=== PATIENT | female | born 1955 | race Caucasian/White ===

== ENCOUNTER → 2016-05-19 14:25 | Outpatient (CLI) | payer MEDICARE | END | disposition home or self-care (01) | LOC: D.RAD 14:25 | DX: J18.9 Pneumonia, unspecified organism (principal) ==

== ENCOUNTER 2018-03-22 10:04 | Inpatient (IN) | payer MEDICARE ==
[~2018-03-22] VITALS: Ht 165.1 cm; Wt 81.8 kg
--- NOTE | ~2018-03-22 | MORECARE ---
CASE MANAGEMENT DISCHARGE SUMMARY PATIENT: YARELI GRAHAM UNIT: [id number] ADM DATE: 03/22/18 AGE: 62 : 59 SEX: F ROOM/BED: D.3123 AUTHOR: CHULA,DOC PHYSICIAN: REFERRING PHYSICIAN: ROLY SEGUNDO MD DATE OF SERVICE: 03/24/18 Discharge Plan Patient Name: YARELI GRAHAM Facility: [facility]:[place] : 1955 Planned Disposition: Home Anticipated Discharge Date: 03/24/18 Discharge Date: Expected LOS: 2 Initial Reviewer: [email or web address] Initial Review Date: 03/24/2018 Generated: 03/24/18 2:58 pm Comments DCP- Discharge Planning Updated by [email or web address]: Chriss Mcleod on 03/24/18 12:[address] Patient Name: YARELI GRAHAM Admission Status: ER Accout number: [id number] Admission Date: 03-22-2018 : 1955 Admission Diagnosis: Attending: ROLY SEGUNDO Current LOS: 2 Anticipated DC Date: 03-24-2018 Planned Disposition: Home Primary Insurance: [employer] Discharge Planning Comments: CM MET WITH PT IN ROOM TO DISCUSS DISCHARGE PLANNING AND NEEDS. PT REPORTS LIVING AT HOME INDEPENDENTLY WITH HER SPOUSE. PT HAS NO MEDICAL EQUIPMENT AND NO OUTSIDE SERVICES ASSISTING IN THE HOME. CM DISCUSSED AVAILABILITY OF HOME HEALTH, REHAB SERVICES AND MEDICAL EQUIPMENT. PT DENIES DISCHARGE NEEDS, REPORTS HER SPOUSE WILL PICK HER UP FOR DISCHARGE HOME. IMPORTANT MESSAGE FROM MEDICARE PROVIDED AND EXPLAINED. PIPE BENDER NURSE NOTIFIED. Vacuum Worker: Chriss Mcleod DCPIA - Discharge Planning Initial Assessment Updated by [email or web address]: Chriss Mcleod on 03/24/18 1:54 pm * Is the patient Alert and Oriented? Yes * How many steps to enter\exit or inside your home? 1--I * PCP DR. FISHMAN * [facility] * Preadmission Environment Home with Family * ADLs Independent * Equipment None * Other Equipment NO MEDICAL EQUIPMENT PROVIDER PREFERENCE * List name and contact numbers for known caregivers / representatives who currently or will assist patient after discharge: DENVER GARHAM, SPOUSE, * Verbal permission to speak to the caregivers and representatives has been obtained from the patient. N/A * Community resources currently utilized None * Please name any agencies selected above. NONE * Additional services required to return to the preadmission environment? No * Can the patient safely return to the preadmission environment? Yes * Has this patient been hospitalized within the prior 30 days at any hospital? No Patient Name: YARELI GRAHAM Page [id number] at 1358 All edits/amendments must be made on the electronic document DICTATION DATE: 03/24/18 1359 PAVING INSPECTOR: GREGORY 03/24/18 1358 RPT#: [id number] DC DATE: STATUS: ADM IN [facility] [address] [place] [address] END OF REPORT
[2018-03-22 11:00] VITALS: BP 111/78
[2018-03-22 11:00] LABS: BASOPHILS 0.2 % (0-2); EOSINOPHILS 0.8 % (0-7); HEMOGLOBIN 12.8 g/dL (12-16); IMMATURE GRANULOCYTES 0.1 % (0-5); LYMPHOCYTES 22.8 % (15-50); MCH 30.5 pg (26.0-34.0); MCHC 32.8 g/dL (31.0-37.0); MCV 93.1 fL (80.0-100.0); MEAN PLATELET VOLUME 9.7 fL (7.4-10.4); MONOCYTES 4.3 % (2-11); NEUTROPHILS 71.8 % (40-80); RBC 4.19 10x6/uL (4.00-5.40); WBC 8.7 10x3/uL (4.8-10.8)
[2018-03-22 11:04] LABS: ALBUMIN 2.9 g/dL (3.4-5.0); ALKALINE PHOSPHATASE 107 U/L (46-116); ALT (SGPT) 27 U/L (10-68); BILIRUBIN - TOTAL 0.13 mg/dL (0.2-1.3); CALC OSMOLALITY 283 mosm/kg (275-300); CALCIUM 9.1 mg/dL (8.5-10.1); CARBON DIOXIDE 30.6 mmol/L (21.0-32.0); CHLORIDE - SERUM 103 mmol/L (98-107); CREATININE - SERUM 0.8 mg/dL (0.6-1.3); GLUCOSE 115 mg/dL (74-106); POTASSIUM - SERUM 4.3 mmol/L (3.5-5.1); PROTEIN - SERUM 7.5 g/dL (6.4-8.2); SODIUM 141 mmol/L (136-145); UREA NITROGEN 17 mg/dL (7-18); eGFR NON AFRICAN AMERICAN 77 mL/min (90-120)
[2018-03-22 11:08] LABS: PLATELET COUNT 373 10x3/uL (130-400)
[2018-03-22 11:16] LABS: CKMB 1.8 U/L (0.0-3.6); CREATINE KINASE 65 UL (21-215); PRO BNP 48 pg/mL (0-125); TROPONIN-I < 0.017 ng/mL (0.000-0.060)
[2018-03-22 12:00] VITALS: BP 126/75
[2018-03-22 12:57] LABS: APPEARANCE CLEAR (CLEAR); BILIRUBIN NEGATIVE (NEGATIVE); COLOR YELLOW (YELLOW); GLUCOSE NEGATIVE (NEGATIVE); KETONE NEGATIVE (NEGATIVE); NITRITE NEGATIVE (NEGATIVE); PROTEIN NEGATIVE (NEGATIVE); UROBILINOGEN NORMAL (NORMAL)
[2018-03-22 12:58] LABS: BACTERIA FEW /hpf (NONE SEEN); EPITHELIAL CELLS OCC /hpf (0-5); MUCUS <1+ /lpf (NONE SEEN); RED CELLS - URINE 0-5 /hpf (0-5); WHITE CELLS - URINE OCC /hpf (0-5)
[2018-03-22 14:02] VITALS: BP 111/83
[2018-03-22] MEDS ORDERED: SINGULAIR10 MG PO ×2 (14:06→14:12)
[2018-03-22] MEDS ORDERED: SYMBICORT 16010.2 GM INH (14:07)
[2018-03-22] MEDS ORDERED: CYMBALTA30 MG PO (14:08)
[2018-03-22] MEDS ORDERED: VENTOLIN HFA18 GM INH (14:09)
[2018-03-22] MEDS ORDERED: IPRAT-ALBUT 0.5-3 ML UPD (14:09)
[2018-03-22] MEDS ORDERED: PAIN PUMP MORPHINE IMP (14:11)
[2018-03-22 14:41] VITALS: BP 111/83; Ht 165.1 cm; Wt 81.8 kg
[2018-03-22 16:10] VITALS: BP 146/75
[2018-03-22 20:00] VITALS: BP 127/73
[2018-03-23] VITALS: BP 109/69
[2018-03-23 04:00] VITALS: BP 114/70
[2018-03-23 08:12] VITALS: BP 131/68
[2018-03-23 12:00] VITALS: BP 109/64
[2018-03-23 18:33] VITALS: BP 125/69
[2018-03-23 20:00] VITALS: BP 122/77
[2018-03-24 00:10] VITALS: BP 108/66
[2018-03-24 04:00] VITALS: BP 115/72
[2018-03-24 05:55] LABS: BASOPHILS 0.3 % (0-2); EOSINOPHILS 0.4 % (0-7); HEMATOCRIT 38.5 % (36.0-48.0); HEMOGLOBIN 12.7 g/dL (12-16); IMMATURE GRANULOCYTES 0.3 % (0-5); LYMPHOCYTES 25.2 % (15-50); MCH 30.1 pg (26.0-34.0); MCV 91.2 fL (80.0-100.0); MEAN PLATELET VOLUME 9.9 fL (7.4-10.4); MONOCYTES 5.2 % (2-11); NEUTROPHILS 68.6 % (40-80); PLATELET COUNT 336 10x3/uL (130-400); RBC 4.22 10x6/uL (4.00-5.40); RDW 12.8 % (11.5-14.5); WBC 7.7 10x3/uL (4.8-10.8)
[2018-03-24 06:25] LABS: ANION GAP 13.2 mmol/L (8-16); CALCIUM 8.8 mg/dL (8.5-10.1); CARBON DIOXIDE 31.3 mmol/L (21.0-32.0); CREATININE - SERUM 0.9 mg/dL (0.6-1.3); POTASSIUM - SERUM 4.5 mmol/L (3.5-5.1)
[2018-03-24 09:33] VITALS: BP 107/64
[2018-03-24] MEDS ORDERED: LEVAQUIN750 MG PO (12:04)
[2018-03-24] MEDS ORDERED: PROTONIX40 MG PO (12:05)
[2018-03-24 12:19] VITALS: BP 111/60
== END 2018-03-24 14:32 | disposition home or self-care (01) | DRG 190 ==
LOC: D.ER 10:04 → D.M2 12:18 → D.EDHOLD 12:18 → D.M2 12:43
PROVIDERS: Emergency Medicine; Internal Medicine Nephrology
DX: J44.0 Chronic obstructive pulmonary disease with (acute) lower respiratory infection (principal); J18.9 Pneumonia, unspecified organism; M81.0 Age-related osteoporosis without current pathological fracture; F32.9 Major depressive disorder, single episode, unspecified

== ENCOUNTER → 2019-03-05 12:19 | Outpatient (CLI) | payer MEDICARE ==
[~2019-03-05 12:19] MED LIST: CYMBALTA30 MG PO; IPRAT-ALBUT 0.5-3 ML UPD; LEVAQUIN750 MG PO; PAIN PUMP MORPHINE IMP; PROTONIX40 MG PO; SINGULAIR10 MG PO; SYMBICORT 16010.2 GM INH; VENTOLIN HFA18 GM INH
== END | disposition home or self-care (01) ==
LOC: D.RT 02-14 11:00
PROVIDERS: ATTEND Internal Medicine Pulmonary Disease
DX: J44.9 Chronic obstructive pulmonary disease, unspecified (principal)

== ENCOUNTER → 2019-03-19 14:20 | Outpatient (CLI) | payer MEDICARE | END | disposition home or self-care (01) | LOC: D.LAB 14:20 | PROVIDERS: ATTEND Internal Medicine Pulmonary Disease | DX: E88.01 Alpha-1-antitrypsin deficiency (principal) ==

== ENCOUNTER → 2019-07-04 09:31 | Outpatient (CLI) | payer MEDICARE ==
[2019-07-04 10:30] LABS: ALBUMIN 3.8 g/dL (3.4-5.0); BILIRUBIN - DIRECT 0.08 mg/dL (0.00-0.30); BILIRUBIN - INDIRECT 0.36 mg/dL (0.00-1.00); BILIRUBIN - TOTAL 0.44 mg/dL (0.2-1.3); PROTEIN - SERUM 7.3 g/dL (6.4-8.2)
[2019-07-05 07:11] LABS: HEPATITIS C ANTIBODY 0.2 S/CO RAT (0.0-0.9)
== END | disposition home or self-care (01) ==
LOC: D.LABREF 09:31
PROVIDERS: ATTEND Internal Medicine Pulmonary Disease
DX: E88.01 Alpha-1-antitrypsin deficiency (principal)

== ENCOUNTER → 2019-10-19 09:13 | Outpatient (CLI) | payer MEDICARE | END | disposition home or self-care (01) | LOC: D.US 09:13 | PROVIDERS: ATTEND Family Medicine | DX: R11.0 Nausea (principal); R10.9 Unspecified abdominal pain ==

== ENCOUNTER 2019-10-25 05:41 | Day surgery (SDC) | payer MEDICARE ==
--- NOTE | 2019-10-23 15:17 | NUR ---
T- 98.9T POX- 98% HR- 81 RR- 16 BP LA- 145/86 NOTIFED ANETHESIA ABOUT FAMILY HX OF MH. DR SUBRAMANIAN CAME TO EVAL PT ORDERS GIVEN FOR DOS.
[2019-10-23 15:53] LABS: HEMATOCRIT 43.7 % (36.0-48.0); HEMOGLOBIN 14.7 g/dL (12-16); MCH 30.9 pg (26.0-34.0); MCHC 33.6 g/dL (31.0-37.0); MEAN PLATELET VOLUME 10.4 fL (7.4-10.4); RBC 4.75 10x6/uL (4.00-5.40); RDW 13.3 % (11.5-14.5); WBC 7.3 10x3/uL (4.8-10.8)
[2019-10-23 16:10] LABS: CALCIUM 9.2 mg/dL (8.5-10.1); CARBON DIOXIDE 29.4 mmol/L (21.0-32.0)
[2019-10-23 16:15] LABS: ANION GAP 11.3 mmol/L (8-16); POTASSIUM - SERUM 3.7 mmol/L (3.5-5.1)
[2019-10-23 16:28] LABS: CREATININE - SERUM 0.9 mg/dL (0.6-1.3)
[~2019-10-25] VITALS: Ht 165.1 cm; Wt 84.4 kg
[2019-10-25] MEDS ORDERED: FISH OIL (06:09)
[2019-10-25] MEDS ORDERED: SUPER B COMPLEX (06:09)
[2019-10-25] MEDS ORDERED: MULTIVITAMIN (06:09)
[2019-10-25] MEDS ORDERED: CALCIUM/MAG/ZINC (06:10)
[2019-10-25 06:13] VITALS: BP 112/79; Ht 165.1 cm; Wt 84.4 kg
--- NOTE | 2019-10-25 06:42 | NUR ---
DR. OBRIEN NOTIFIED AND REVIEWED PT'S BEHAVIOR AND ASSESSMENT RESULTS. PT IS A LOW RISK PER DR. OBRIEN. DR. OBRIEN STATED TO GIVE RESOURECES TO PT AT TIME OF DISCHARGE. NO FURTHER ORDERST AT THIS TIME. RESOURCES REVIEWED WITH PT AND HE VERBALIZED UNDERSTANDING.
--- NOTE | 2019-10-25 10:34 | NUR ---
1001 IV DC'D. CATHETER TIP INTACT. PRESSURE HELD UNTIL BLEEDING CEASED. PT DOES NOT WANT BANDAID. SHE STATES THAT BANDAIDS BLISTERS HER ARM.
== END 2019-10-25 10:13 | disposition home or self-care (01) ==
LOC: D.OPS 05:41 → D.PAN 07:30 → D.OPS 10:13
PROVIDERS: Anesthesiology; ATTEND Surgery
DX: K80.20 Calculus of gallbladder without cholecystitis without obstruction (principal); G62.9 Polyneuropathy, unspecified; J44.9 Chronic obstructive pulmonary disease, unspecified; K21.9 Gastro-esophageal reflux disease without esophagitis; Z87.891 Personal history of nicotine dependence; R11.0 Nausea